=== PATIENT | female | born 2000 | race Caucasian/White ===

== ENCOUNTER 2023-08-06 19:00 | Inpatient (IN) | payer MEDICAID ==
[~2023-08-06] VITALS: Ht 162.6 cm; Wt 73.0 kg
[2023-08-06] MEDS ORDERED: BUTORPHANOL TARTRATE 2 MG/1 ML VIAL IV PRN (19:30)
[2023-08-06] MEDS ORDERED: WITCH HAZEL-GLYCERIN PAD TOP PRN (19:30)
[2023-08-06] MEDS ORDERED: LIDOCAINE 2%HCL (LOCAL ANESTH.) INJ 20ML MDV IJ PRN (19:30)
[2023-08-06] MEDS ORDERED: DERMOPLAST 60ML BOTTLE TOP PRN (19:30)
[2023-08-06] MEDS ORDERED: PHISODERM TOP SOLN 240ML BTL TOP PRN (19:30)
[2023-08-06 19:46] LABS: Urine Bacteria None Seen /hpf (None Seen)
[2023-08-06 19:54] LABS: Basophils # (auto) 0 10 ^3/uL (0-0.2); Basophils % (auto) 0.5 % (0.0-2.0); Eosinophils # (auto) 0 10 ^3/uL (0-0.8); Eosinophils % (auto) 0.6 % (0.0-7.0); Hematocrit 31.6 % (36.0-46.0); Hemoglobin 9.9 g/dL (12.2-16.2); Lymphocytes # (auto) 1.5 10 ^3/uL (0.4-5.4); Lymphocytes % (auto) 22.8 % (10.0-50.0); Mean Corpuscular Hemoglobin 23.6 pg (28.0-32.0); Mean Corpuscular Hgb Conc. 31.4 g/dL (32.0-36.0); Mean Corpuscular Volume 75.3 fL (80.0-100.0); Monocytes # (auto) 0.6 10 ^3/uL (0-1.3); Monocytes % (auto) 9.6 % (0.0-12.0); Neutrophils # (auto) 4.3 10 ^3/uL (1.6-8.6); Neutrophils % (auto) 66.5 % (37.0-80.0); Nucleated Red Blood Cells % 0.1 %; Red Blood Cells 4.19 10^6/uL (4.0-5.20); Red Cell Distribution Width 18.2 % (11.8-14.3); White Blood Cell 6.5 10^3/uL (4.4-10.8)
[2023-08-06 20:05] LABS: Urine Blood Negative /uL (Negative); Urine Clarity Clear (Clear); Urine Color Colorless (Yellow); Urine Protein, UAD Negative (Negative); Urine Specific Gravity 1.005 (1.001-1.035); Urine Urobilinogen Normal (Negative); Urine WBC 2 /hpf (0 - 5); Urine pH 6.5 (5.0-9.0)
[2023-08-06 20:09] LABS: Albumin 4.1 g/dL (3.2-4.8); Alkaline Phosphatase 150 U/L (46-116); Anion Gap 10 (5-15); Aspartate Aminotransferase 13 U/L (13-40); Calcium 9.5 mg/dL (8.5-10.1); Carbon Dioxide 21 mmol/L (20-30); Chloride 105 mmol/L (98-107); Glucose 97 mg/dL (74-106); Potassium 3.6 mmol/L (3.5-5.1); Sodium 136 mmol/L (136-145)
[2023-08-06 20:10] LABS: Bilirubin, Total 0.7 mg/dL (0.2-1.0); Total Protein 6.7 g/dL (5.7-8.2)
[2023-08-06 20:11] LABS: Alanine Aminotransferase < 9 U/L (7-40); BUN/Creatinine Ratio 9.6 (10.0-20.0); Blood Urea Nitrogen < 5 mg/dL (9-23)
[2023-08-06 20:15] LABS: INR 0.97 (0.9-1.15); Partial Thromboplastin Time 25.3 SEC (24.5-34.5); Prothrombin Time 10.3 sec (9.3-11.8)
[2023-08-06 20:25] LABS: Amphetamine Screen, Urine Neg (NEGATIVE); Benzodiazephine Screen, Urine Neg (NEGATIVE)
[2023-08-06 20:26] LABS: Barbiturate Scree,Urine Neg (NEGATIVE); Cannabinoid Screen, Urine Neg (NEGATIVE); Cocaine Screen, Urine Neg (NEGATIVE); Opiate Scree,Urine Neg (NEGATIVE); Phencyclidine Screen, Urine Neg (NEGATIVE)
[2023-08-06] MEDS: LACTATED RINGER'S 1,000 ML IV SCH (20:50)
[2023-08-06] MEDS: miSOPROStol 50 MCG per PRE-CUT 1/2 TAB PO PRN (22:50)
[2023-08-07] MEDS ORDERED: PREN-129 OR (01:43)
[2023-08-07] MEDS ORDERED: FER325T PO (01:44)
[2023-08-07] MEDS: BUTORPHANOL TARTRATE 2 MG/1 ML VIAL IV PRN (03:41)
[2023-08-07] MEDS: ONDANSETRON HCL 4 MG/2 ML VIAL IV PRN (05:02)
[2023-08-07] MEDS: NALOXONE HCL 0.4 MG/ML VIAL IV ONE (07:15)
[2023-08-07] MEDS: ePHEDrine SULFATE 50 MG/ML AMP IV ONE (07:15)
[2023-08-07] MEDS: fentaNYL CITRATE 100 MCG/2 ML VL IV ONE ×2 (07:15→08:48)
[2023-08-07] MEDS: ROPIVACAINE HCL 0 ML ONE (08:05)
[2023-08-07] MEDS: LACTATED RINGER'S 1,000 ML IV ONE (08:39)
[2023-08-07] MEDS: METHYLERGONOVINE MALEATE 0.2 MG/ML AMP IM ONE (09:35)
[2023-08-07] MEDS: LIDOCAINE 2%HCL (LOCAL ANESTH.) INJ 20ML MDV IJ PRN (10:06)
[2023-08-07] MEDS: LACT. RINGERS/OXYTOCIN 20UNITS 500 ML IV ONE ×2 (10:06→10:21)
[2023-08-07] MEDS ORDERED: ONDANSETRON ODT 4 MG TAB PO PRN (11:00)
[2023-08-07] MEDS ORDERED: ACETAMINOPHEN 325 MG TAB PO PRN (11:00)
[2023-08-07] MEDS: IBUPROFEN 600 MG TAB PO PRN (12:14)
[2023-08-07 14:34] VITALS: BP 107/58; PULSE 77; RESP 17; TEMP 97.5
[2023-08-07 19:01] VITALS: BP 96/55; PULSE 77; RESP 17; TEMP 98; O2SAT 98
[2023-08-07 23:30] VITALS: BP 102/57; PULSE 73; RESP 12; TEMP 98.3; O2SAT 97
[2023-08-08 03:20] VITALS: BP 92/52; PULSE 83; RESP 12; TEMP 98; O2SAT 96
[2023-08-08 07:00] VITALS: BP 101/59; PULSE 72; RESP 17; TEMP 98.1; O2SAT 97
== END 2023-08-08 11:51 | disposition home or self-care (01) | DRG 560 ==
LOC: LDRP 19:00
PROVIDERS: ADMIT Obstetrics & Gynecology; ATTEND Obstetrics & Gynecology
PROC: 10E0XZZ Delivery of Products of Conception, External Approach (ICD-10-PCS; principal; 2023-08-07)
PROC: 0HQ9XZZ Repair Perineum Skin, External Approach (ICD-10-PCS; 2023-08-07)
PROC: 3E0DXGC Introduction of Other Therapeutic Substance into Mouth and Pharynx, External Approach (ICD-10-PCS; 2023-08-07)
DX: O69.81X0 Labor and delivery complicated by cord around neck, without compression, not applicable or unspecified (principal); Z37.0 Single live birth; O70.0 First degree perineal laceration during delivery; Z3A.39 39 weeks gestation of pregnancy
CPT/HCPCS: 36415; 59025; 59409; 80053; 80307; 81001; 85025; 85610; 85730; 86592; 86803; 86850; 86900; 86901; 94760; 94762; 96360; 96361; 96365; 96366; 96374; 96375; G0378; J2405; J2590

== ENCOUNTER 2023-08-11 02:27 | Emergency (ER) | payer MEDICAID ==
[~2023-08-11] VITALS: Ht 162.6 cm; Wt 67.0 kg
[~2023-08-11 02:27] MED LIST: FER325T PO; PREN-129 OR
[2023-08-11 03:01] VITALS: BP 107/49; PULSE 90; RESP 14; O2SAT 99
[2023-08-11 03:28] LABS: Urine Bacteria FEW /hpf (None Seen); Urine Blood 3+ /uL (Negative); Urine Clarity Clear (Clear); Urine Color Yellow (Yellow); Urine Mucus FEW (None Seen); Urine Protein, UAD TRACE (Negative); Urine Specific Gravity 1.024 (1.001-1.035); Urine Urobilinogen 2 mg/dL (Negative); Urine WBC 20 /hpf (0 - 5)
== END 2023-08-11 03:36 | disposition left against medical advice (07) ==
LOC: ER 02:27
DX: R10.2 Pelvic and perineal pain (principal); Z53.21 Procedure and treatment not carried out due to patient leaving prior to being seen by health care provider
CPT/HCPCS: 81001